=== PATIENT | female | born 1960 | race American Indian/Alaskan Native ===

== ENCOUNTER 2016-12-20 12:22 | Inpatient (IN) | payer MEDICAID ==
[2016-12-20 13:14] LABS: Basophils % (Auto) 0.7 % (0.0-1.8); Hematocrit 41.2 % (30.3-42.9); Hemoglobin 13.3 gm/dl (10.1-14.3); Mean Corpuscular HGB Conc 32 % (30-34); Mean Corpuscular Hemoglobin 30 pg (28-32); Mean Corpuscular Volume 92 fl (79-97); Platelet Count 240 K/mm3 (140-440); Red Blood Count 4.47 M/mm3 (3.65-5.03); Red Cell Distribution Width 13.3 % (13.2-15.2); White Blood Count 9.3 K/mm3 (4.5-11.0)
[2016-12-20 13:31] LABS: Alanine Aminotransferase 14 units/L (7-56); Albumin 4.3 g/dL (3.9-5); Albumin/Globulin Ratio 1.5 %; Alkaline Phosphatase 88 units/L (35-129); Anion Gap 18 mmol/L; BUN/Creatinine Ratio 18.33; Blood Urea Nitrogen 11 mg/dL (7-17); Calcium 9.6 mg/dL (8.4-10.2); Carbon Dioxide 23 mmol/L (22-30); Chloride 104.5 mmol/L (98-107); Glucose 145 mg/dL (65-100); Lipase 26 units/L (13-60); Potassium 3.7 mmol/L (3.6-5.0); Sodium 142 mmol/L (137-145); Total Protein 7.1 g/dL (6.3-8.2)
[2016-12-20] MEDS ORDERED: NITROSTAT SL ONE (13:40)
--- NOTE | 2016-12-20 13:45 | Emergency Department Report ---
ED Chest Pain HPI - General Chief Complaint: Abdominal Pain Stated Complaint: LT SIDE PAIN Time Seen by Provider: 12/20/16 13:35 Source: EMS Mode of arrival: Ambulatory Limitations: No Limitations - History of Present Illness MD Complaint: chest pain -: Gradual, week(s) Pain Location: left chest Pain Radiation: LUE, abdomen Severity scale (0 -10): 8 Quality: pressure Consistency: intermittent Improves With: remaining still Worsens With: exertion - Related Data Allergies Allergy/AdvReac Type Severity Reaction Status Date / Time clonidine AdvReac Swelling Verified 12/20/16 12:41 codeine AdvReac Swelling Verified 12/20/16 12:41 Heart Score - HEART Score History: Moderately suspicious EKG: Non-specific Age: 45-65 Risk factors: 1-2 risk factors Troponin: < normal limit HEART Score: 4 - Critical Actions Critical Actions: 4-6 pts:12-16.6% risk of adverse cardiac event. Should be admitted ED Review of Systems ROS: Stated complaint: LT SIDE PAIN Other details as noted in HPI Comment: All other systems reviewed and negative Constitutional: chills, fever Respiratory: denies: cough, shortness of breath Cardiovascular: chest pain. denies: palpitations Gastrointestinal: abdominal pain. denies: nausea, vomiting, diarrhea, constipation Neurological: denies: headache, weakness, numbness, paresthesias ED Past Medical Hx - Past Medical History Previous Medical History?: Yes Hx Hypertension: Yes Hx CVA: No Hx Heart Attack/AMI: No Hx Congestive Heart Failure: No Hx Diabetes: Yes Hx Deep Vein Thrombosis: No Hx Pulmonary Embolism: No Hx GERD: No Hx Liver Disease: No Hx Renal Disease: No Hx of Cancer: No Hx Sickle Cell Disease: No Hx Arthritis: No Hx Headaches / Migraines: No Hx Seizures: No Hx Kidney Stones: No Hx Psychiatric Treatment: No Hx Asthma: No Hx COPD: No Hx Tuberculosis: No Hx Dementia: No Hx HIV: No - Surgical History Past Surgical History?: Yes Hx Coronary Stent: No Hx Open Heart Surgery: No Hx Pacemaker: No Hx Internal Defibrillator: No Hx Cholecystectomy: Yes Hx Appendectomy: No Hx Breast Surgery: No - Social History Smoking Status: Never Smoker Substance Use Type: None ED Physical Exam - General Limitations: No Limitations General appearance: alert, in no apparent distress - Head Head exam: Present: normocephalic - ENT ENT exam: Present: normal exam - Neck Neck exam: Present: normal inspection. Absent: tenderness, meningismus - Respiratory Respiratory exam: Present: normal lung sounds bilaterally. Absent: respiratory distress, wheezes, rales, rhonchi, stridor - Cardiovascular Cardiovascular Exam: Present: regular rate, normal rhythm, normal heart sounds - GI/Abdominal GI/Abdominal exam: Present: soft. Absent: guarding, rebound, rigid, normal bowel sounds - Extremities Exam Extremities exam: Present: normal inspection, normal capillary refill - Back Exam Back exam: Present: normal inspection. Absent: CVA tenderness (R), CVA tenderness (L) - Neurological Exam Neurological exam: Present: alert, oriented X3, CN II-XII intact, normal gait - Skin Skin exam: Present: warm, intact, normal color ED Course Vital Signs 12/20/16 12/20/16 12/20/16 12:32 13:11 13:12 Temperature 98.7 F 98.3 F Pulse Rate 86 72 Respiratory 18 20 20 Rate Blood Pressure 185/96 Blood Pressure 185/96 206/106 [Right] O2 Sat by Pulse 100 100 100 Oximetry 12/20/16 13:49 Temperature Pulse Rate 92 H Respiratory Rate Blood Pressure 206/106 Blood Pressure [Right] O2 Sat by Pulse Oximetry - Reevaluation(s) Reevaluation #1: 12/20/16 15:22 Patient's symptoms improved after nitroglycerin and blood pressure went down nicely. Discussed with Dr. Veras for admission to rule out VT ED Medical Decision Making - Lab Data Result diagrams: 12/20/16 12:58 12/20/16 12:58 - EKG Data -: EKG Interpreted by Me EKG shows normal: sinus rhythm - EKG Data Interpretation: no acute changes, nonspecific ST-T wave ciara - Radiology Data Radiology results: report reviewed Chest x-ray with no acute abnormality - Medical Decision Making Ms. Becker presented with typical chest pain, EKG didn't show anything acute pain related to his nitroglycerin patient will need to be admitted to the hospital for rule out VT and further workup and management. Critical care attestation.: If time is entered above; I have spent that time in minutes in the direct care of this critically ill patient, excluding procedure time. ED Disposition Clinical Impression: Chest pain Disposition: OP ADMIT IP TO THIS HOSP Is pt being admited?: Yes Does the pt Need Aspirin: Yes (patient received aspirin by EMS) Condition: Stable Instructions: Chest Pain (ED), Abdominal Pain (ED) Referrals: PRIMARY CARE,MD [Primary Care Provider] - 3-5 Days
[2016-12-20 14:08] LABS: Bacteria,Urine 1+ /HPF (Negative); Bilirubin,Urine NEG (Negative); Blood,Urine NEG (Negative); Ketones,Urine TR mg/dL (Negative); Leukocyte Esterase,Urine TR (Negative); Mucus,Urine 3+ /HPF; Nitrite,Urine NEG (Negative); Urobilinogen,Urine < 2.0 mg/dL (<2.0)
--- NOTE | 2016-12-20 15:16 | XRay Report ---
CHEST ONE VIEW INDICATION: Chest pain. COMPARISON: None similar at this institution. FINDINGS: Portable, single, frontal chest radiograph demonstrates normal cardiomediastinal silhouette. Clear lungs. Few bony degenerative changes. Possible osteopenia. Extrinsic EKG leads. CONCLUSION: No acute disease in the chest. Thank you for the opportunity to participate in this patient's care.
[2016-12-20] MEDS ORDERED: ASPIRIN PO ONE (17:29)
[2016-12-20] MEDS ORDERED: MILK OF MAGNESIA PO PRN (21:26)
[2016-12-20] MEDS ORDERED: ZOFRAN IV PRN (21:26)
[2016-12-20] MEDS ORDERED: TYLENOL PO PRN (21:26)
[2016-12-20] MEDS ORDERED: PERCOCET 5/325 PO PRN (21:26)
[2016-12-20] MEDS ORDERED: MORPHINE IV PRN (21:26)
[2016-12-20] MEDS ORDERED: DULCOLAX PR PRN (21:26)
--- NOTE | 2016-12-20 21:26 | History and Physical Report ---
History of Present Illness Date of examination: 12/20/16 Date of admission: 12/20/16 15:23 Chief complaint: CC L sided [employer] AM History of present illness: 56 y/o female with multiple medical problems including HTN HLD Asthma CHF T2dm and epression Presents withL sided chest pain.INtermittent in nature,And 6/10 in severity.Patient has been moving furniture recently b/c of relocation from another city.Pain exacerbated by L shoulder movement.No Diaphoresis.No SOB.No Palpitation.Recent travel present.No fever chills Past History Past Medical History: COPD, diabetes, heart failure, hypertension, hyperlipidemia, other (Asthma Depression) Medications and Allergies Allergies Allergy/AdvReac Type Severity Reaction Status Date / Time clonidine AdvReac Swelling Verified 12/20/16 12:41 Home Medications Medication Instructions Recorded Confirmed Last Taken Type ALBUTEROL NEB's [Proventil] 2.5 mg IH TID PRN 12/20/16 12/20/16 12/19/16 History AtorvaSTATin [Lipitor] 20 mg PO QHS 12/20/16 12/20/16 12/19/16 History Beclomethasone Dipropionate [Qvar] 8.7 gm IH Q4-6H 12/20/16 12/20/16 12/19/16 History Chlorthalidone 25 mg PO DAILY 12/20/16 12/20/16 12/19/16 History Hydroxyzine HCl [hydrOXYzine] 50 mg PO TID 12/20/16 12/20/16 12/19/16 History Lisinopril [Zestril] 20 mg PO QDAY 12/20/16 12/20/16 12/19/16 History Metformin HCl [Glucophage] 1,000 mg PO BID 12/20/16 12/20/16 12/19/16 History Montelukast [Singulair] 10 mg PO QPM 12/20/16 12/20/16 12/19/16 History PARoxetine [Paxil] 20 mg PO DAILY 12/20/16 12/20/16 12/19/16 History amLODIPine [Norvasc] 10 mg PO DAILY 12/20/16 12/20/16 12/19/16 History Review of Systems All systems: negative Exam - Constitutional Vitals: Temp Pulse Resp BP Pulse Ox 98.7 F 74 22 161/78 98 12/20/16 21:09 12/20/16 21:09 12/20/16 21:09 12/20/16 21:09 12/20/16 21:09 General appearance: Present: no acute distress, well-nourished - EENT Eyes: Present: PERRL ENT: hearing intact, clear oral mucosa - Neck Neck: Present: supple, normal ROM - Respiratory Respiratory effort: normal Respiratory: bilateral: CTA - Cardiovascular Heart rate: 80 Rhythm: regular Heart Sounds: Present: S1 & S2. Absent: rub, click Details: Chest wall tenderness present - Extremities Extremities: no ischemia, pulses intact, pulses symmetrical, No edema Peripheral Pulses: within normal limits - Abdominal General gastrointestinal: Present: soft, non-tender, non-distended, normal bowel sounds Female genitourinary: Present: normal - Rectal Rectal Exam: deferred - Integumentary Integumentary: Present: clear, warm, dry - Musculoskeletal Musculoskeletal: gait normal, strength equal bilaterally - Psychiatric Psychiatric: appropriate mood/affect, intact judgment & insight - Neurologic Neurologic: CNII-XII intact, moves all extremities - Allied Health Allied health notes reviewed: nursing, case management Results - Labs CBC & Chem 7: 12/20/16 12:58 12/20/16 12:58 Labs: Laboratory Last Values WBC 9.3 K/mm3 (4.5-11.0) 12/20/16 12:58 RBC 4.47 M/mm3 (3.65-5.03) 12/20/16 12:58 Hgb 13.3 gm/dl (10.1-14.3) 12/20/16 12:58 Hct 41.2 % (30.3-42.9) 12/20/16 12:58 MCV 92 fl (79-97) 12/20/16 12:58 MCH 30 pg (28-32) 12/20/16 12:58 MCHC 32 % (30-34) 12/20/16 12:58 RDW 13.3 % (13.2-15.2) 12/20/16 12:58 Plt Count 240 K/mm3 (140-440) 12/20/16 12:58 Lymph % (Auto) 28.1 % (13.4-35.0) 12/20/16 12:58 Motley % (Auto) 7.5 % (0.0-7.3) H 12/20/16 12:58 Eos % (Auto) 1.0 % (0.0-4.3) 12/20/16 12:58 Baso % (Auto) 0.7 % (0.0-1.8) 12/20/16 12:58 Lymph # 2.6 K/mm3 (1.2-5.4) 12/20/16 12:58 Motley # 0.7 K/mm3 (0.0-0.8) 12/20/16 12:58 Eos # 0.1 K/mm3 (0.0-0.4) 12/20/16 12:58 Baso # 0.1 K/mm3 (0.0-0.1) 12/20/16 12:58 Seg Neutrophils % 62.7 % (40.0-70.0) 12/20/16 12:58 Seg Neutrophils # 5.8 K/mm3 (1.8-7.7) 12/20/16 12:58 Sodium 142 mmol/L (137-145) 12/20/16 12:58 Potassium 3.7 mmol/L (3.6-5.0) 12/20/16 12:58 Chloride 104.5 mmol/L (98-107) 12/20/16 12:58 Carbon Dioxide 23 mmol/L (22-30) 12/20/16 12:58 Anion Gap 18 mmol/L 12/20/16 12:58 BUN 11 mg/dL (7-17) 12/20/16 12:58 Creatinine 0.6 mg/dL (0.7-1.2) L 12/20/16 12:58 Estimated GFR > 60 ml/min 12/20/16 12:58 BUN/Creatinine Ratio 18.33 % 12/20/16 12:58 Glucose 145 mg/dL (65-100) H 12/20/16 12:58 POC Glucose 104 (70-105) 12/20/16 17:23 Calcium 9.6 mg/dL (8.4-10.2) 12/20/16 12:58 Total Bilirubin 0.50 mg/dL (0.1-1.2) 12/20/16 12:58 AST 18 units/L (5-40) 12/20/16 12:58 ALT 14 units/L (7-56) 12/20/16 12:58 Alkaline Phosphatase 88 units/L (35-129) 12/20/16 12:58 Troponin T < 0.010 ng/mL (0.00-0.029) 12/20/16 13:54 Total Protein 7.1 g/dL (6.3-8.2) 12/20/16 12:58 Albumin 4.3 g/dL (3.9-5) 12/20/16 12:58 Albumin/Globulin Ratio 1.5 % 12/20/16 12:58 Lipase 26 units/L (13-60) 12/20/16 12:58 Urine Color Cindy (Yellow) 12/20/16 13:44 Urine Turbidity Clear (Clear) 12/20/16 13:44 Urine pH 5.0 (5.0-7.0) 12/20/16 13:44 Ur Specific [place] 1.029 (1.003-1.030) 12/20/16 13:44 Urine Protein 100 mg/dl mg/dL (Negative) 12/20/16 13:44 Urine Glucose (UA) Neg mg/dL (Negative) 12/20/16 13:44 Urine Ketones Tr mg/dL (Negative) 12/20/16 13:44 Urine Blood Neg (Negative) 12/20/16 13:44 Urine Nitrite Neg (Negative) 12/20/16 13:44 Urine Bilirubin Neg (Negative) 12/20/16 13:44 Urine Urobilinogen < 2.0 mg/dL (<2.0) 12/20/16 13:44 Ur Leukocyte Esterase Tr (Negative) 12/20/16 13:44 Urine WBC (Auto) 6.0 /HPF (0.0-6.0) 12/20/16 13:44 Urine RBC (Auto) 8.0 /HPF (0.0-6.0) 12/20/16 13:44 U Epithel Cells (Auto) 1.0 /HPF (0-13.0) 12/20/16 13:44 Urine Bacteria (Auto) 1+ /HPF (Negative) 12/20/16 13:44 Calcium Oxalate Crystal 3+ 12/20/16 13:44 Urine Mucus 3+ /HPF 12/20/16 13:44 - Imaging and Cardiology EKG: report reviewed Assessment and Plan Advance Directives: Yes (Full code) VTE prophylaxis?: Chemical Plan of care discussed with patient/family: Yes - Patient Problems (1) Chest pain Current Visit: Yes Status: Acute Qualifiers: Chest pain type: chest pain on breathing Ischemic chest pain type: I Qualified Code(s): R07.1 - Chest pain on breathing; R07.81 - Pleurodynia Plan to address problem: I am more in favor of costochondritis Will get cardiac w/u including CE's and Lexiscan (2) Costochondritis, acute Current Visit: Yes Status: Acute Plan to address problem: Sec to Physicalactivity involving moving furniture etc Will add meloxicam (3) HTN (hypertension) Current Visit: Yes Status: Chronic Qualifiers: Hypertension type: essential hypertension Qualified Code(s): I10 - Essential (primary) hypertension (4) Asthma Current Visit: Yes Status: Acute Qualifiers: Asthma severity: mild intermittent Asthma complication type: uncomplicated Qualified Code(s): J45.20 - Mild intermittent asthma, uncomplicated Plan to address problem: Cont Qvar and Singulair (5) HLD (hyperlipidemia) Current Visit: Yes Status: Chronic Qualifiers: Hyperlipidemia type: mixed hyperlipidemia Qualified Code(s): E78.2 - Mixed hyperlipidemia (6) CHF (congestive heart failure) Current Visit: Yes Status: Chronic Qualifiers: Congestive heart failure type: combined Congestive heart failure chronicity : C Plan to address problem: t2dm (7) T2DM (type 2 diabetes mellitus) Current Visit: Yes Status: Chronic Qualifiers: Diabetes mellitus complication detail: D Diabetic retinopathy severity: D Proliferative retinopathy type: P Diabetes mellitus macular edema: D Diabetes mellitus custodial insulin use: D Laterality: L Chronic kidney disease stage: C Plan to address problem: Accucheks and coverage (8) Depression Current Visit: Yes Status: Chronic Qualifiers: Depression Type: unspecified Major depression recurrence: M Active/ Remission status: A Major depression episode severity: M Psychotic features : P Trimester: T Qualified Code(s): F32.9 - Major depressive disorder, single episode, unspecified (9) DVT prophylaxis Current Visit: Yes Status: Acute Plan to address problem: On Lovenox
[2016-12-20] MEDS ORDERED: PROVENTIL IH PRN (21:28)
[2016-12-20] MEDS ORDERED: NON-FORMULARY (Beclomethasone Dipropionate [Qvar] 8.7 GM) IH SCH (21:30)
[2016-12-20] MEDS: NORVASC PO SCH (22:07)
[2016-12-20] MEDS: GLUCOPHAGE PO SCH (22:08)
[2016-12-20] MEDS: PAXIL PO SCH (22:08)
[2016-12-20] MEDS: NACL 0.9% 1000 ML 1,000 ML IV SCH (22:09)
[2016-12-20] MEDS: ZESTRIL PO SCH (22:09)
[2016-12-20] MEDS: HABITROL TD SCH (22:09)
[2016-12-20] MEDS: THALITONE PO SCH (22:22)
[2016-12-21] MEDS ORDERED: LEXISCAN IV ONE ×2 (08:43→08:44)
[2016-12-21] MEDS: GLUCOPHAGE PO SCH (10:45)
[2016-12-21] MEDS: NORVASC PO SCH (10:45)
[2016-12-21] MEDS: ZESTRIL PO SCH (10:45)
[2016-12-21] MEDS: PAXIL PO SCH (10:45)
[2016-12-21] MEDS: THALITONE PO SCH (10:46)
[2016-12-21] MEDS: HABITROL TD SCH (10:46)
[2016-12-21] MEDS: VISTARIL PO SCH ×2 (10:46→15:04)
[2016-12-21] MEDS: NACL 0.9% 1000 ML 1,000 ML IV SCH (10:48)
[2016-12-21] MEDS ORDERED: NOVOLOG SUB-Q SCH (11:30)
[2016-12-21 12:24] VITALS: BP 143/82
--- NOTE | 2016-12-21 14:04 | Discharge Summary ---
Providers - Providers Date of Admission: 12/20/16 15:23 Date of discharge: 12/21/16 Attending physician: TYSON FERRARA Primary care physician: [employer] Hospitalization Condition: Stable Disposition: DC-01 TO HOME OR SELFCARE Time spent for discharge: 35 min Exam - Constitutional Vitals: Temp Pulse Resp BP Pulse Ox 98.2 F 72 18 143/82 99 12/21/16 11:34 12/21/16 11:34 12/21/16 11:34 12/21/16 11:34 12/21/16 11:34 Plan Activity: advance as tolerated Diet: low cholesterol, low salt Follow up with: SWATI QUIGLEY MD [Primary Care Provider] - 3-5 Days PORTIA HOLDER MD [Staff Physician] - 7 Days Prescriptions: Acetaminophen [Acetaminophen 8 Hour] 650 mg PO TID #15 tablet.er Naproxen [Naprosyn] 500 mg PO BID #10 tablet oxyCODONE /ACETAMINOPHEN [Percocet 5/325 mg] 1 tab PO Q6H PRN #10 tablet PRN Reason: Pain, Moderate (4-6)
[2016-12-21] MEDS ORDERED: SINGULAIR PO SCH (18:00)
--- NOTE | 2016-12-22 10:42 | Treadmill Report ---
NUCLEAR PERFUSION SCAN REFERRING PHYSICIAN: Dr. Bryson Veras. PROTOCOL: The patient was brought to the stress lab in a postabsorptive state, given 10 mCi of technetium 99m at rest. The patient underwent rest imaging. The patient underwent Lexiscan stress test per standard protocol. At peak stress, the patient was given 26 mCi of technetium 99m. Shortly thereafter, the patient underwent stress imaging. Raw imaging is examined carefully in the horizontal long axis, vertical long axis, and short axis views. There was normal homogenous uptake of radioisotope in all reported segments. No evidence of significant fixed or reversible perfusion defects suggestive of prior infarction or ischemia. Gated wall motion reveals normal systolic thickening. Calculated ejection fraction of 62%. No TID. CONCLUSION: 1. Normal nuclear perfusion scan without evidence of active ischemia or prior infarction. 2. Normal left ventricular systolic performance without evidence of transient ischemic dilatation or stress-induced segmental wall motion abnormalities. JOB# [id number] MIRELLA/SORIN
== END 2016-12-21 16:20 | disposition home or self-care (01) | DRG 206 ==
LOC: ED 12:22 → 4A 15:23
PROVIDERS: ADMIT Internal Medicine; ATTEND Internal Medicine
DX: M94.0 Chondrocostal junction syndrome [Tietze] (principal); F32.9 Major depressive disorder, single episode, unspecified; E11.9 Type 2 diabetes mellitus without complications; I11.0 Hypertensive heart disease with heart failure; I50.9 Heart failure, unspecified; J44.9 Chronic obstructive pulmonary disease, unspecified; E78.5 Hyperlipidemia, unspecified; Z88.5 Allergy status to narcotic agent; Z90.49 Acquired absence of other specified parts of digestive tract; Z79.899 Other long term (current) drug therapy
CPT/HCPCS: 36415; 71010; 78452; 80053; 81001; 82962; 83036; 83690; 84484; 85025; 93005; 93010; 93017; A9270-GY; A9502; J2270; J2785; J7030; Q0177

== ENCOUNTER 2021-10-01 20:54 | Emergency (ER) | payer MEDICAID ==
[2021-10-01] MEDS ORDERED: ALBUTEROL 2.5 MG/3 ML NEBU IH ONE (21:22)
[2021-10-01] MEDS ORDERED: methylPREDNISolone Sod Succinate 125 MG/2 ML INJ IM ONE (21:22)
[2021-10-01] MEDS ORDERED: IPRATROPIUM 0.02% NEBU 2.5 ML IH ONE (21:22)
--- NOTE | 2021-10-01 23:09 | Emergency Department Report ---
ED Shortness of Breath HPI - General Chief Complaint: Adult Asthma Stated Complaint: BREATHING TREATMENT Source: patient Mode of arrival: Ambulatory Limitations: No Limitations - History of Present Illness Initial Comments: Patient is a 61-year-old -Vincent[place] female with a history of asthma, hypertension, uyc-vmomsvy-aosherrfe diabetes, hyperlipidemia and CHF who presents to the ED with complaint of acute onset persistent shortness of breath, wheezing, chest tightness, nasal and sinus congestion, persistent dry cough for the last 2 days. Patient states that she ran out of her albuterol inhaler at home and was unable to pickle pumper the refills of the same, due to delay by the pharmacy. Patient states that shortness of breath is constant and persistent and that she has had persistent chest tightness from the asthma attack. Patient denies dizziness, syncope, nausea and vomiting, chest pain, fever, chills, sore throat, abdominal pain, hemoptysis, neck pain, headache, lightheadedness or diarrhea. MD Complaint: shortness of breath, cough, chest pain (Tightness), "asthma attack" -: days(s) (2) Severity: severe Pain Scale: 7 Quality: other (Pressure and tightness) Consistency: constant Improves With: nothing Worsens With: nothing Known History Of: asthma, congestive heart failure, diabetes Context: allergen exposure Associated Symptoms: denies other symptoms, cough Treatments Prior to Arrival: none - Related Data Home Oxygen Therapy: No Home Medications Medication Instructions Recorded Confirmed Last Taken ALBUTEROL NEB's [Proventil 0.083% 2.5 mg IH TID PRN 12/20/16 12/20/16 12/19/16 NEBS] AtorvaSTATin [Lipitor] 20 mg PO QHS 12/20/16 12/20/16 12/19/16 Beclomethasone Dipropionate [Qvar] 8.7 gm IH Q4-6H 12/20/16 12/20/16 12/19/16 Chlorthalidone 25 mg PO DAILY 12/20/16 12/20/16 12/19/16 Hydroxyzine HCl [hydrOXYzine] 50 mg PO TID 12/20/16 12/20/16 12/19/16 Metformin HCl [Glucophage] 1,000 mg PO BID 12/20/16 12/20/16 12/19/16 Montelukast [Singulair] 10 mg PO QPM 12/20/16 12/20/16 12/19/16 PARoxetine [Paxil] 20 mg PO DAILY 12/20/16 12/20/16 12/19/16 amLODIPine 10 mg PO DAILY 12/20/16 12/20/16 12/19/16 lisinopriL [Zestril TAB] 20 mg PO QDAY 12/20/16 12/20/16 12/19/16 Previous Rx's Medication Instructions Recorded Last Taken Type Acetaminophen [Acetaminophen 8 650 mg PO TID #15 tablet.er 12/21/16 Unknown Rx Hour] Naproxen [Naprosyn] 500 mg PO BID #10 tablet 12/21/16 Unknown Rx oxyCODONE /ACETAMINOPHEN [Percocet 1 tab PO Q6H PRN #10 tablet 12/21/16 Unknown Rx 5/325 mg] Prednisone [predniSONE 5 mg (6-Day 5 mg PO .TAPER #1 tab.ds.pk 12/09/18 Unknown Rx Pack, 21 Tabs)] Albuterol Mdi (or & Nicu Only) 2 puff IH Q4HR PRN #1 inhalation 10/01/21 Unknown Rx [ProAir HFA Inhaler] Benzonatate [Tessalon Perles] 100 mg PO Q8HR #30 cap 10/01/21 Unknown Rx Montelukast [Singulair] 10 mg PO QPM #30 tablet 10/01/21 Unknown Rx methylPREDNISolone [Medrol 4MG 4 mg PO DAILY #21 tab 10/01/21 Unknown Rx DOSEPAK (21 tabs)] Allergies Allergy/AdvReac Type Severity Reaction Status Date / Time Penicillins Allergy Unknown Verified 10/01/21 21:05 clonidine AdvReac Swelling Verified 12/20/16 12:41 ED Review of Systems ROS: Stated complaint: BREATHING TREATMENT Other details as noted in HPI Constitutional: denies: chills, fever, weakness Eyes: denies: eye pain, eye discharge, vision change ENT: congestion. denies: ear pain, throat pain Respiratory: cough, shortness of breath, wheezing Cardiovascular: denies: chest pain, palpitations, dyspnea on exertion, edema, syncope, paroxysmal nocturnal dyspnea Endocrine: no symptoms reported Gastrointestinal: denies: abdominal pain, nausea, vomiting, diarrhea Genitourinary: denies: urgency, dysuria, discharge Musculoskeletal: denies: back pain, joint swelling, arthralgia Skin: denies: rash, lesions Neurological: denies: headache, weakness, paresthesias Psychiatric: denies: anxiety, depression Hematological/Lymphatic: denies: easy bleeding, easy bruising ED Past Medical Hx - Past Medical History Hx Hypertension: Yes Hx CVA: No Hx Heart Attack/AMI: No Hx Congestive Heart Failure: Yes Hx Diabetes: Yes Hx Deep Vein Thrombosis: No Hx Pulmonary Embolism: No Hx GERD: No Hx Liver Disease: No Hx Renal Disease: No Hx Sickle Cell Disease: No Hx Arthritis: No Hx Headaches / Migraines: No Hx Seizures: No Hx Kidney Stones: No Hx Psychiatric Treatment: No Hx Asthma: Yes Hx COPD: No Hx Tuberculosis: No Hx Dementia: No Hx HIV: No Additional medical history: Hyperlipidemia - Surgical History Hx Coronary Stent: No Hx Open Heart Surgery: No Hx Pacemaker: No Hx Internal Defibrillator: No Hx Cholecystectomy: Yes Hx Appendectomy: No Hx Breast Surgery: No - Social History Smoking Status: Never Smoker - Medications Home Medications: Home Medications Medication Instructions Recorded Confirmed Last Taken Type ALBUTEROL NEB's [Proventil 0.083% 2.5 mg IH TID PRN 12/20/16 12/20/16 12/19/16 History NEBS] AtorvaSTATin [Lipitor] 20 mg PO QHS 12/20/16 12/20/16 12/19/16 History Beclomethasone Dipropionate [Qvar] 8.7 gm IH Q4-6H 12/20/16 12/20/16 12/19/16 History Chlorthalidone 25 mg PO DAILY 12/20/16 12/20/16 12/19/16 History Hydroxyzine HCl [hydrOXYzine] 50 mg PO TID 12/20/16 12/20/16 12/19/16 History Metformin HCl [Glucophage] 1,000 mg PO BID 12/20/16 12/20/16 12/19/16 History Montelukast [Singulair] 10 mg PO QPM 12/20/16 12/20/16 12/19/16 History PARoxetine [Paxil] 20 mg PO DAILY 12/20/16 12/20/16 12/19/16 History amLODIPine 10 mg PO DAILY 12/20/16 12/20/16 12/19/16 History lisinopriL [Zestril TAB] 20 mg PO QDAY 12/20/16 12/20/16 12/19/16 History Acetaminophen [Acetaminophen 8 650 mg PO TID #15 tablet.er 12/21/16 Unknown Rx Hour] Naproxen [Naprosyn] 500 mg PO BID #10 tablet 12/21/16 Unknown Rx oxyCODONE /ACETAMINOPHEN [Percocet 1 tab PO Q6H PRN #10 tablet 12/21/16 Unknown Rx 5/325 mg] Prednisone [predniSONE 5 mg (6-Day 5 mg PO .TAPER #1 tab.ds.pk 12/09/18 Unknown Rx Pack, 21 Tabs)] Albuterol Mdi (or & Nicu Only) 2 puff IH Q4HR PRN #1 inhalation 10/01/21 Unknown Rx [ProAir HFA Inhaler] Benzonatate [Tessalon Perles] 100 mg PO Q8HR #30 cap 10/01/21 Unknown Rx Montelukast [Singulair] 10 mg PO QPM #30 tablet 10/01/21 Unknown Rx methylPREDNISolone [Medrol 4MG 4 mg PO DAILY #21 tab 10/01/21 Unknown Rx DOSEPAK (21 tabs)] ED Physical Exam - General Limitations: No Limitations General appearance: alert, in no apparent distress - Head Head exam: Present: atraumatic, normocephalic, normal inspection - Eye Eye exam: Present: normal appearance, PERRL, EOMI Pupils: Present: normal accommodation - ENT ENT exam: Present: normal orophraynx, mucous membranes moist, TM's normal bilaterally, normal external ear exam, other (Grossly congested nasal passages) - Neck Neck exam: Present: normal inspection, full ROM. Absent: tenderness - Respiratory Respiratory exam: Present: normal lung sounds bilaterally, wheezes (Diffuse coarse wheezes throughout). Absent: respiratory distress, rales, rhonchi, chest wall tenderness, accessory muscle use, decreased breath sounds - Cardiovascular Cardiovascular Exam: Present: normal rhythm, tachycardia, normal heart sounds. Absent: systolic murmur, diastolic murmur, rubs, gallop - GI/Abdominal GI/Abdominal exam: Present: soft, normal bowel sounds. Absent: tenderness, guar ding, rebound, hyperactive bowel sounds, hypoactive bowel sounds, organomegaly, bruit - Extremities Exam Extremities exam: Present: normal inspection, full ROM, normal capillary refill - Back Exam Back exam: Present: normal inspection, full ROM. Absent: tenderness, muscle spasm, paraspinal tenderness, vertebral tenderness - Neurological Exam Neurological exam: Present: alert, oriented X3, CN II-XII intact, normal gait, reflexes normal. Absent: abnormal gait, motor sensory deficit - Psychiatric Psychiatric exam: Present: normal affect, normal mood, anxious - Skin Skin exam: Present: warm, dry, intact, normal color. Absent: rash ED Course Vital Signs 10/01/21 21:00 Temperature 99.1 F Pulse Rate 109 H Respiratory 16 Rate Blood Pressure 198/120 O2 Sat by Pulse 100 Oximetry ED Medical Decision Making - Radiology Data Radiology results: report reviewed, image reviewed [facility] [address] [place] [address] XRay Report Signed Patient: SUSI GRIMES MR#: [id number] : 1960 Acct:[id number] Age/Sex: 61 / F ADM Date: 10/01/21 Loc: ED Attending Dr: Ordering Physician: CARLEE MCGUIRE Date of Service: 10/01/21 Procedure(s): XR chest routine 2V Accession Number(s): [id number] cc: CARLEE MCGUIRE Fluoro Time In Minutes: XR chest routine 2V INDICATION / CLINICAL INFORMATION: Dysnea, asthma. COMPARISON: 12/20/2016 FINDINGS: SUPPORT DEVICES: None. HEART /PULMONARY VASCULATURE: No significant abnormality. LUNGS / PLEURA: No significant pulmonary or pleural abnormality. No pneumothorax. ADDITIONAL FINDINGS: No significant additional findings. IMPRESSION: 1. No acute findings. Signer Name: Dee Moser MD Signed: 10/01/2021 11:49 PM Workstation Name: [id number] Transcribed By: FARSHAD Dictated By: DEE MOSER MD Electronically Authenticated By: DEE MOSER MD Signed Date/Time: 10/01/212348 DD/ 47 TD/TT: - Medical Decision Making This is a 61-year-old -Vin[place] female with a history of asthma, hypertension, cii-ywqmfmq-yymydvfdh diabetes, hyperlipidemia and CHF who presents to the ED with complaint of acute onset persistent shortness of breath, wheezing, chest tightness, nasal and sinus congestion, persistent dry cough for the last 2 days. Patient states that she ran out of her albuterol inhaler at home and was unable to pickle pumper the refills of the same, due to delay by the pharmacy. Patient states that shortness of breath is constant and persistent and that she has had persistent chest tightness from the asthma attack. In the ED, patient is alert and oriented x3 and is not in any distress, but hypertensive, tachycardic in triage with oxygen saturation of 100% in room air. Patient was treated in the ED with Solu-Medrol 125 mg IM x1, patient also received DuoNeb treatment for 1 hour. Chest x-ray showed no acute cardiopulmon luke abnormalities or pneumonitis. On reevaluation, patient felt better, wheezing resolved and patient's oxygen saturation is 80% in room air. Patient was discharged home on medications and advised to follow-up with her primary care physician in 5 to 7 days for reevaluation or return to the ED immediately if symptoms get worse. - Differential Diagnosis Asthma; bronchitis; CHF; ACS; pneumonia; URI; COVID-19 Critical care attestation.: If time is entered above; I have spent that time in minutes in the direct care of this critically ill patient, excluding procedure time. ED Disposition Clinical Impression: Shortness of breath, Acute bronchitis with asthma with acute exacerbation, Acute upper respiratory infection Disposition: 01 HOME / SELF CARE / HOMELESS Is pt being admited?: No Does the pt Need Aspirin: No Condition: Stable Instructions: Shortness of Breath, Adult, Xlcq-al-Ddry, Cough, Adult, Cpvw-gj-Gnlj, Acute Bronchitis, Adult, Wheq-ky-Ccbm, Upper Respiratory Infection, Adult, Jwib-hv-Vngd, Asthma, Adult, Mnmg-qc-Syhk Additional Instructions: Take medication with food, drink plenty of fluids, follow-up with your primary care physician in 5 to 7 days for reevaluation. Return to the ED immediately if symptoms get worse. Prescriptions: methylPREDNISolone [Medrol 4MG DOSEPAK (21 tabs)] 4 mg PO DAILY #21 tab Albuterol Mdi (or & Nicu Only) [ProAir HFA Inhaler] 2 puff IH Q4HR PRN #1 inhalation PRN Reason: Shortness Of Breath Montelukast [Singulair] 10 mg PO QPM #30 tablet Benzonatate [Tessalon Perles] 100 mg PO Q8HR #30 cap Referrals: [facility] [Provider Group] - 3-5 Days Time of Disposition: 23:16 Print Language: GREEK
--- NOTE | 2021-10-01 23:53 | XRay Report ---
XR chest routine 2V INDICATION / CLINICAL INFORMATION: Dysnea, asthma. COMPARISON: 12/20/2016 FINDINGS: SUPPORT DEVICES: None. HEART /PULMONARY VASCULATURE: No significant abnormality. LUNGS / PLEURA: No significant pulmonary or pleural abnormality. No pneumothorax. ADDITIONAL FINDINGS: No significant additional findings. IMPRESSION: 1. No acute findings. Signer Name: Ajay Moser MD Signed: 10/01/2021 11:49 PM Workstation Name: [id number]
[2021-10-02 00:11] VITALS: BP 168/83
== END 2021-10-02 00:29 | disposition home or self-care (01) ==
LOC: ED 20:54
DX: J20.9 Acute bronchitis, unspecified (principal); J45.901 Unspecified asthma with (acute) exacerbation; J06.9 Acute upper respiratory infection, unspecified; R06.02 Shortness of breath; I11.0 Hypertensive heart disease with heart failure; I50.9 Heart failure, unspecified; E11.9 Type 2 diabetes mellitus without complications; Z88.0 Allergy status to penicillin; Z91.09 Other allergy status, other than to drugs and biological substances; Z79.899 Other long term (current) drug therapy
CPT/HCPCS: 71046; 94640; 96372; 99283; J2930